=== PATIENT | female | born 1990 | race Two or more races ===

== ENCOUNTER 2018-01-27 13:48 | Observation (INO) | payer MEDICAID ==
[~2018-01-27] VITALS: Ht 160 cm; Wt 73.0 kg
[2018-01-27] MEDS ORDERED: PNV1TABL76 PO (16:58)
== END 2018-01-27 17:15 | disposition home or self-care (01) ==
LOC: L&D 13:48
PROVIDERS: ADMIT Specialist; ATTEND Specialist
DX: O48.0 Post-term pregnancy (principal); Z3A.40 40 weeks gestation of pregnancy
CPT/HCPCS: 59025; 76815; 76818; G0378